=== PATIENT | male | born 1955 | race Caucasian/White ===

== ENCOUNTER → 2020-02-08 | Day surgery (SDC) | payer MEDICARE, OTHER ==
[~2020-02-08] MED LIST: Glycopyrrolate 0.2 MG/ML SDV IVPUSH ONE; Lactated Ringers 1,000 ML IV SCH; Propofol 200 MG/20 ML SDV IV ONE
[2020-02-08 08:38] LABS: CHLORIDE,CL 102 mEq/L (98-106); SODIUM,NA 138 mEq/L (136-145)
--- NOTE | 2020-02-08 13:24 | OR ---
DATE OF OPERATION: 02/08/2020 PREOPERATIVE DIAGNOSIS: ALTERED BOWEL HABITS. POSTOPERATIVE DIAGNOSIS: ALTERED BOWEL HABITS. SURGEON: Charles Diop MD PROCEDURE: DIAGNOSTIC COLONOSCOPY TO MID TRANSVERSE COLON. ANESTHESIA: MAC. COMPLICATIONS: None. SPECIMEN: None. FINDINGS: 1. Incomplete colonoscopy to mid transverse colon. 2. Pandiverticulosis, moderate. 3. Extremely poor bowel prep. RECOMMENDATIONS: We will discuss options with the patient in followup. INDICATIONS: The patient presented for routine clinic visit, admitted to having a lot of issues with his bowels. He is status post pancreatectomy for pancreatic CA. He has never had a prior colonoscopy and we elected to proceed with a diagnostic scope. DESCRIPTION OF PROCEDURE: The patient was prepped and draped, placed in the left lateral decubitus position. A lubricated Olympus colonoscope was inserted and unfortunately the patient had extremely poor prep, lot of particulate thick stool throughout the entire colon. I was able to safely traverse until about the mid transverse which was quite tortuous and there was just too much stool to maneuver as he has diverticular disease throughout. We elected to stop around I believe the mid to distal transverse colon, difficult to tell for sure given the amount of stool upon withdrawal. Certainly, smaller lesions could have been missed, but no gross abnormalities were seen. He does have moderate diverticular disease throughout, but no inflammatory changes obvious. No obvious polyps, masses, ulceration, or bleeding sites. The rectal vault was benign. Retroflexion showed no anal lesions. Air was suctioned, scope removed without complication. CUAUHTEMOC/GERALDO /[id number]
== END ==
LOC: CC.SDS 07:08
PROVIDERS: ATTEND Family Medicine
DX: K57.30 Diverticulosis of large intestine without perforation or abscess without bleeding (principal); I10 Essential (primary) hypertension; E78.5 Hyperlipidemia, unspecified; E11.42 Type 2 diabetes mellitus with diabetic polyneuropathy; F12.10 Cannabis abuse, uncomplicated; C25.9 Malignant neoplasm of pancreas, unspecified; C61 Malignant neoplasm of prostate; E87.6 Hypokalemia; Z88.8 Allergy status to other drugs, medicaments and biological substances; Z53.8 Procedure and treatment not carried out for other reasons; Z79.4 Long term (current) use of insulin; Z79.899 Other long term (current) drug therapy
CPT/HCPCS: 36415; 80048; G0121; J2704; J3490; J7120

== ENCOUNTER → 2022-12-23 | Day surgery (SDC) | payer MEDICARE, OTHER ==
[~2022-12-23] MED LIST changes: +Dexamethasone 4 MG/ML SDV ONE; +Flumazenil 0.1 MG/ML 10 ML MDV ONE; -Glycopyrrolate 0.2 MG/ML SDV IVPUSH ONE; +Ketamine 200 MG/20 ML MDV ONE; +Lidocaine 1% with EPINEPHrine 1:100,000 20 ML MDV INJECT ONE; +Lidocaine 2% 5 ML SDV ONE; +Metoprolol Tartrate 5 MG/5 ML SDV ONE; +Midazolam 1 MG/ML 2 ML SDV ONE; +Ondansetron 4 MG/2 ML SDV ONE; -Propofol 200 MG/20 ML SDV IV ONE; +Propofol 200 MG/20 ML SDV ONE; +ceFAZolin 2 GM Vial IVPUSH ONE; +fentaNYL 50 MCG/ML SDV ONE
== END ==
LOC: CC.SDS 07:57
PROVIDERS: ATTEND Surgery
DX: K43.2 Incisional hernia without obstruction or gangrene (principal); E78.5 Hyperlipidemia, unspecified; I10 Essential (primary) hypertension; C61 Malignant neoplasm of prostate; E11.42 Type 2 diabetes mellitus with diabetic polyneuropathy; Z88.8 Allergy status to other drugs, medicaments and biological substances; Z79.899 Other long term (current) drug therapy
CPT/HCPCS: J0690; J1100; J2250; J2405; J2704; J3010; J3490; J7120